=== PATIENT | female | born 1945 | race Caucasian/White ===

== ENCOUNTER 2022-03-06 12:28 | Emergency (ER) | payer MEDICARE ==
[2022-03-06] MEDS ORDERED: Dexamethasone 10 MG/ML VIAL ONE (14:46)
== END 2022-03-06 15:14 | disposition home or self-care (01) ==
LOC: MADERS 12:28
DX: J06.9 Acute upper respiratory infection, unspecified (principal); R50.9 Fever, unspecified; R05.9 Cough, unspecified; E03.9 Hypothyroidism, unspecified; I10 Essential (primary) hypertension; Z20.822 Contact with and (suspected) exposure to COVID-19; Z87.891 Personal history of nicotine dependence
CPT/HCPCS: 71046; 87804; 96372; J1100; U0003; U0005

== ENCOUNTER 2022-03-16 14:12 | Emergency (ER) | payer MEDICARE ==
[2022-03-16] MEDS ORDERED: Mag-Al Plus 1200 MG/1200 MG/120 MG/30 ML UDCUP ONE (14:41)
[2022-03-16] MEDS ORDERED: Lidocaine Viscous Sol 2% 15 ml UD Cup ONE (14:41)
[2022-03-16] MEDS ORDERED: Famotidine/PF 20 mg/2ml Vial ONE (14:41)
[2022-03-16 14:46] LABS: #Eosinphils 0.3 thou/uL (0.0-0.7); #Lymphocytes 0.3 thou/uL (1.20-3.40); #Monocytes 0.8 thou/uL (0.11-0.59); #Neutrophils 10.6 thou/uL (1.40-6.50); %Basophils 0.3 % (0.0-1.0); %Eosinophils 2.1 % (0.0-10.0); %Lymphocytes 2.3 % (21.0-51.0); %Monocytes 6.6 % (0.0-10.0); %Neutrophils 88.7 % (42.0-75.0); Hemoglobin 10.8 g/dL (12.0-16.0); Mean Corpuscular HGB CONC 33.8 g/dL (32.0-36.0); Mean Corpuscular Volume 94.6 fl (78.0-98.0); Mean Platelet Volume 6.7 fL (7.4-10.4); Platelet Count 140 10x3/uL (130-400); RBC Distribution Width 12.1 % (11.5-14.5); Red Blood Cell (RBC) Count 3.37 mill/uL (4.20-5.40)
[2022-03-16 15:08] LABS: ALT (SGPT) 18 U/L (8-55); AST (SGOT) 15 U/L (5-34); Albumin 3.1 g/dL (3.4-4.8); Alkaline Phosphatase 46 U/L (40-110); Anion Gap 12 mmol/L (10-20); BUN (Urea Nitrogen) 43 mg/dL (9.8-20.1); Bilirubin, Total 0.3 mg/dL (0.2-1.2); Calc. Creatinine Clearance 0 mL/min (70-130); Calcium 9.1 mg/dL (7.8-10.44); Carbon Dioxide 21 mmol/L (23-31); Chloride 111 mmol/L (98-107); Estimated GFR 20; Globulin 2.3 g/dL (2.4-3.5); Glucose 114 mg/dL (83-110); Lipase 15 U/L (8-78); Protein, Total 5.4 g/dL (5.8-8.1); Sodium 140 mmol/L (136-145)
[2022-03-16] MEDS ORDERED: Lactated Ringer's 1,000 ML ONE (16:57)
== END 2022-03-16 17:35 | disposition short-term general hospital (02) ==
LOC: MADERS 14:12
DX: R07.89 Other chest pain (principal); E78.00 Pure hypercholesterolemia, unspecified; E03.9 Hypothyroidism, unspecified; I10 Essential (primary) hypertension; Z79.899 Other long term (current) drug therapy; Z87.891 Personal history of nicotine dependence
CPT/HCPCS: 36415; 71045; 80053; 83605; 83690; 84484; 85025; 85379; 93005; 94760; 96361; 96374; J7120; S0028